=== PATIENT | female | born 1955 | race Caucasian/White ===

== ENCOUNTER → 2017-12-07 14:50 | Outpatient (CLI) | payer BC, SELFPAY ==
[2017-12-14 11:47] LABS: HPV Reflexed? NOT INDICATED
== END ==
PROVIDERS: Visit Provider Obstetrics & Gynecology
DX: Z12.4 Encounter for screening for malignant neoplasm of cervix (principal)
CPT/HCPCS: 88175; G0145

== ENCOUNTER → 2018-10-25 | Outpatient (CLI) | payer OTHER, SELFPAY ==
--- NOTE | 2018-10-25 11:19 | US_ITS ---
STUDY: ULTRASOUND OF THE FEMALE PELVIS - COMPLETE REASON FOR EXAM: Female, 63 years old. Pelvic pain. LMP: Unknown. TECHNIQUE: Transabdominal and Transvaginal TECHNICAL QUALITY: Adequate. COMPARISON: None. FINDINGS: The uterus is anteverted and is in a midline position. The uterus measures 6.6 x 4.7 x 2.8 cm. Normal uterine cervix. The endometrium measures 5 mm in thickness, and is hyperechoic. There is no demonstrated endometrial mass. There is no demonstrated myometrial mass. I.U.D. - The patient does not have an I.U.D. The right ovary is visualized. The right ovary measures 1.2 x 1.4 x 0.6 cm. There is no right ovarian cyst or ovarian mass. There is no visualized right adnexal mass or complex lesion. There is normal arterial and normal venous vascularity. Left ovary is not visualized.. Prominent vascular structures are noted within the left adnexal region. There is no fluid in the cul-de-sac. The pre void volume of the bladder was ml. The post void volume of the bladder was ml. Polycystic ovary disease: No. US/Pelvic (Non ) IMPRESSION: 1. Nonvisualized distally with left adnexal vascular structures and areas of myometrial hypoechoic regions with underlying pelvic congestion are not excluded. Further evaluation with postcontrast pelvic CT versus MRI to assess for etiology underlying vascularity may be obtained as clinically warranted. 2. Upper limits normal for age of endometrial thickness at 5 mm. Electronically Signed: Mikel Tse DO at 13:24 EDT , Service support ,
--- NOTE | 2018-10-25 11:47 | US_ITS ---
STUDY: ULTRASOUND OF THE FEMALE PELVIS - COMPLETE REASON FOR EXAM: Female, 63 years old. Pelvic pain. LMP: Unknown. TECHNIQUE: Transabdominal and Transvaginal TECHNICAL QUALITY: Adequate. COMPARISON: None. FINDINGS: The uterus is anteverted and is in a midline position. The uterus measures 6.6 x 4.7 x 2.8 cm. Normal uterine cervix. The endometrium measures 5 mm in thickness, and is hyperechoic. There is no demonstrated endometrial mass. There is no demonstrated myometrial mass. I.U.D. - The patient does not have an I.U.D. The right ovary is visualized. The right ovary measures 1.2 x 1.4 x 0.6 cm. There is no right ovarian cyst or ovarian mass. There is no visualized right adnexal mass or complex lesion. There is normal arterial and normal venous vascularity. Left ovary is not visualized.. Prominent vascular structures are noted within the left adnexal region. There is no fluid in the cul-de-sac. The pre void volume of the bladder was ml. The post void volume of the bladder was ml. Polycystic ovary disease: No. US/Transvaginal Non- IMPRESSION: 1. Nonvisualized distally with left adnexal vascular structures and areas of myometrial hypoechoic regions with underlying pelvic congestion are not excluded. Further evaluation with postcontrast pelvic CT versus MRI to assess for etiology underlying vascularity may be obtained as clinically warranted. 2. Upper limits normal for age of endometrial thickness at 5 mm. Electronically Signed: Mikel Tse DO at 13:24 EDT , Service support ,
== END | disposition home or self-care (01) ==
LOC: US 11:13
PROVIDERS: Family Provider Family Medicine; PCP Family Medicine; Referring Provider Obstetrics & Gynecology; Visit Provider Obstetrics & Gynecology
DX: R10.2 Pelvic and perineal pain (principal)
CPT/HCPCS: 76830; 76856; 93976

== ENCOUNTER → 2018-11-03 15:03 | Outpatient (CLI) | payer OTHER, SELFPAY ==
--- NOTE | 2018-11-03 | CYSPIN_PTH ---
PATIENT: DEMARCO BROTHERS LOC: [facility] U#:[id number] AGE/SX: 70/F ROOM: RE11/03/[address]: Dr. Sonya Lott MD : 1955 BED: DIS: SPEC #: [id number] RECD: 11/06/18 10:45 STATUS: EVERETTE REMaria M #: [id number] TERRY: 11/03/18 00:[address]: Sonya Lott DEPT: CYTOLOGY RECD BY: Kevin Becker ENTERED: 11/06/18 10:46 SP TYPE: CYSPIN FL OTHR DR: Dr. Mick Borden MD Tissues: Urine Procedures: Pap Stain (control) Special Stain Group II Cytospin Fluid HEADER OPERATION: Not noted PRE-OP DIAGNOSIS: R30.0 TISSUE SUBMITTED: Urine for cytology DIAGNOSIS CYTOLOGY Urine for cytology (cytospin): Negative for malignant cells. AM:sina 11/07/18 CYTOLOGY STUDY Slides are reviewed. CYTOLOGY GROSS Received is 40 ml of clear yellow fluid labeled with the patient's name and and designated per the requisition as urine. Submitted for cytology preparation. 11/06/18 TC:5 CPT: 99434
[2018-11-03 15:16] LABS: Cytology, Body Fluid / CSF SEE PATHOLOGY REPORT
== END ==
PROVIDERS: Family Provider Family Medicine; PCP Family Medicine; Referring Provider Obstetrics & Gynecology; Visit Provider Obstetrics & Gynecology
DX: R30.0 Dysuria (principal)
CPT/HCPCS: 87086; 88108; 88313

== ENCOUNTER → 2018-11-16 10:17 | Outpatient (CLI) | payer OTHER, SELFPAY ==
--- NOTE | 2018-11-16 10:30 | MRI_ITS ---
STUDY: MR PELVIS WITH T WITHOUT CONTRAST REASON FOR EXAM: Female, 63 years old. Generalized pelvic pain TECHNIQUE: Standardized fat and water weighted pulse sequences were obtained in all 3 orthogonal planes, pre-and post contrast administration. 10 IV Dotarem was administered for the contrast portion of the examination. COMPARISON: Previous ultrasound FINDINGS: Normal urinary bladder. Normal visualized small intestine. There is retained stool noted in the visualized colon, the rectum is distended with stool. This may be impacted. Uterus is visualized. Although the endometrium was not visualized on ultrasound to be of normal thickness and is shown to be abnormally thickened for age on the MRI. On MRI, it measures between 0.7 and 1.1 cm. There are also endometrial cysts best seen on the sagittal recon images sequence 3, images 17-19. If patient is postmenopausal, this is abnormal and biopsy is recommended. No suspicious adnexal mass, there has been a previous left oophorectomy There is no pelvic fluid. There is no pelvic mass lesion or lymphadenopathy. Normal visualized pelvic arteries. 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 Normal abdominal wall. MRI/Pelvis W/WO Contrast IMPRESSION: Endometrium on MRI measures between 0.7 and 1.1 cm with endometrial cysts noted. This is abnormal thickness if patient is postmenopausal and further evaluation with biopsy is recommended to exclude endometrial carcinoma. Retained stool noted in the visualized colon, there is distention of the rectum with stool which may be impacted. No suspicious cystic mass, there has been previous left oophorectomy. No demonstrated free fluid. Electronically Signed: Dano Farmer MD at 14:23 EDT , Service support ,
[2018-11-16 12:36] LABS: CREATININE FINGERSTICK 0.9 mg/dL (0.55-1.02); EGFR FINGERSTICK > 60.0000 mL/min (>60)
== END ==
PROVIDERS: Family Provider Family Medicine; PCP Family Medicine; Referring Provider Obstetrics & Gynecology; Visit Provider Obstetrics & Gynecology
DX: R10.2 Pelvic and perineal pain (principal)
CPT/HCPCS: 72197; A9575

== ENCOUNTER 2018-11-28 12:21 | Day surgery (SDC) | payer OTHER, SELFPAY ==
[2018-11-22 15:06] LABS: Hemoglobin 14.4 g/dL (12.0-15.0); Mean Corp Hgb Conc 33.5 g/dL (32-36); Mean Corpuscular Hgb 32.1 pg (27.0-32.0); Mean Platelet Vol. 9.7 fl (6.2-12.0); Platelet Count 249 K/mm3 (150-450); RBC Distribution Width CV 12.7 % (11.6-14.6); RBC Distribution Width SD 44.9 fl (35.1-43.9); Red Blood Count 4.48 M/mm3 (4.2-5.4); White Blood Count 7.5 K/mm3 (4.4-11.0)
[2018-11-22 15:12] LABS: Partial Thromboplast Time 27.9 Seconds (24.1-36.2); Prothrombin Time (Protime)PT. 12.6 SECONDS (11.7-14.9)
[2018-11-28] VITALS (7 sets, daily range): BP systolic 110–146; BP diastolic 54–68; PULSE 63–85; RESP 14–18; TEMP 36.2–36.7; O2SAT 98–100; BMI 20.5
--- NOTE | 2018-11-28 08:59 | HP.PCM_ITS ---
History Date of Admission: 11/28/18 History of this : This is a 63 year-old, G [], P [], at weeks gestational age. Allergies egg Allergy (Verified 11/22/18 14:06) Other peanut Allergy (Verified 11/22/18 14:06) Chest tightness Home Medications: Home Medications Balsam Kulwant [Kulwant Balsam] 10 drp SL BID 11/22/18 Bio Identical Hormone 0.05 mg SL DAILY 11/22/18 Bugleweed 5 ml PO DAILY 11/22/18 Collagen Powder 1 pkt PO DAILY 11/22/18 Latanoprost 0.005% [Xalatan Opthalmic] 1 drp EACH EYE QHS 11/22/18 Magnesium Oxide [Magnesium] 500 mg PO DAILY 11/22/18 [place]-3 Fatty Acids/Fish Oil [[place]-3 1,000 mg Softgel] 1 ea PO DAILY 11/22/18 Systemic Drainage Drops 10 drp SL BID 11/22/18 Thymosin Alpha 3,000 mcg PO TUTHSA 11/22/18 Thyroid,Pork [Nature-Throid] 65 mg PO DAILY 11/22/18 Vitamin B Complex 1 ea PO DAILY 11/22/18 Vitamin D3/Vitamin K2 (Mk4) [K2 Plus D3 Tablet] 1 ea PO DAILY 11/22/18 Smoking Status: Never smoker History Past Pregnancies: Past Pregnancies Delivery Date Name GA/Weeks Outcome Route Weight Infant Gender Labor Length Anesthesia Delivery Location Provider FOB Review of Systems Constitutional: Denies: Chills, Fever, Weight Change HEENT: Denies: Difficulty Hearing, Difficulty Swallowing, Nasal bleeding, Nasal Congestion, Sore Throat Cardiovascular: Denies: Chest Pain, Palpitations Respiratory: Denies: Shortness of Breath, Wheezing Gastrointestinal: Denies: Constipation, Diarrhea, Nausea, Vomiting Genitourinary: Denies: Dysuria, Frequency, Hematuria, Incontinence, Urgency Musculoskeletal: Denies: Joint Pain, Muscle pain Skin: Denies: Lesions, Skin Changes Neurological: Denies: Focal weakness, Numbness Psychiatric: Denies: Anxiety, Depression Endocrine: Denies: Heat/ Cold Intolerance Hematologic/ Lymphatic: Denies: Easy Bleeding Physical Exam General: Alert, Oriented x3, No apparent distress HEENT: Atraumatic, Normocephalic. Negative for: Thyromegaly, Lymphadenopathy Cardiovascular: Regular rate, Regular Rhythm Lungs: Clear to auscultation Abdomen: Bowel Sounds Present, Gravid Neurological: Deep Tendon Reflexes 2+/4 and Symmetrical, Neuro grossly intact AUDIO VISUAL PROJECT MANAGER: Normal external genitalia. Negative for: Vulvar lesions Assessment/Plan This is a 63 year-old, presents with pelvic pain. Noted to have thickened endometrium on ultrasound Recommend D and C, hysteroscopy The preop preparation, the intraop procedures and the postop recovery reviewed. The risks of bleeding, infection and other organ damage including bladder, bowel and uterine perforation reviewed, accepted and consented.
--- NOTE | 2018-11-28 13:20 | EMB_PTH ---
PATIENT: DEMARCO BROTHERS [place] [facility] [place][id number] AGE/SX: 63/F ROOM: RE11/28/[address]: Dr. Sonya Lott MD : 1955 BED: DIS: 11/28/2018 SPEC #: [id number] RECD: 11/29/18 07:54 STATUS: EVERETTE FRANKY #: [id number] TERRY: 11/28/18 13:[address]: Sonya Lott DEPT: SURGICAL PATHOLOGY RECD BY: Edward Briseno ENTERED: 11/29/18 11:15 SP TYPE: ENDOM BX/C FRANK DR: Dr. Mick Borden MD Tissues: Endometrium, NOS Procedures: Surgery Specimen Level IV HEADER OPERATION: Hysteroscopy, dilation and curettage PRE-OP DIAGNOSIS: Thickened endometrium, pelvic pain TISSUE SUBMITTED: Endometrial curettings MICROSCOPIC DIAGNOSIS Endometrial curettings: Polypoid fragments of endometrial tissue with focal simple cystic hyperplasia without atypia, may represent fragments of benign endometrial polyps. Fragments of inactive endometrium. Fragments of benign ectocervical epithelium. SOHEILA:sina 11/30/18 COMMENT Case has been reviewed in consultation with Dr. Pool who concurs with the above diagnosis. IDC:AM MICROSCOPIC DESCRIPTION Slides are reviewed. GROSS DESCRIPTION Received in fixative is one container labeled with the patient's name and designated endometrial curettings. The specimen consists of multiple fragments of hemorrhagic mucoid tissue that in aggregate measure 3 x 2.5 x 0.3 cm. The entire specimen is submitted in one cassette. / SOHEILA:sina 11/29/18 TC:5 CPT: 09231
--- NOTE | 2018-11-28 14:14 | PCM.OPRPT ---
Report of Operation Date of Procedure: 11/28/18 Pre-Operative Diagnosis: Thickened endometrium Post-Operative Diagnosis: Same Surgery/Procedure Performed:: D and C, hysteroscopy Description of Surgical Findings:: Uterus was sounded to approximately 9 cm in an anterior position fully mobile. Bilateral adnexa noted to be benign on pelvic exam under anesthesia Type of Anesthesia:: Local MAC Anesthesiologist: Jose Carroll Special Medications: Cefotetan 2 g IV preoperatively and 8 cc of 1% lidocaine directly to the cervix Specimen's removed: Endometrium Drains: None Estimated Blood Loss (mL): Minimal Fluids Replaced: Lactated Ringer's Description of Procedure: Patient was taken to the operating room and n.p.o. status. She is placed in the operating room table and appropriate monitors placed. She underwent a MAC anesthetic and once found be adequate she is placed in dorsolithotomy position via the Karan stirrups. Should be noted that timeout occurred upon entry to room in the second timeout before commencement of the procedure. Patient was prepped and draped in normal sterile fashion. Patient had a straight cath of the bladder for 30 cc of clear urine. Patient had weighted speculum to the vagina anterior lip of the cervix was grasped and elevated with a single-tooth tenaculum. 8 cc of 1% lidocaine placed directly to the cervix. Uterus was sounded to approximately 9 cm in the anterior position. Cervical os was easily dilated to accommodate a 5 mm hysteroscope. Hysteroscope placed into the endometrial cavity with sparse amount of tissue noted but throughout the entire endometrial cavity. There was also a polyp-like structure extending from the endocervical canal that was removed separately but was sent with the endometrial tissue. The hysteroscope was removed and followed by sharp curettage of the entire endometrial cavity. This tissue was collected and sent away for pathological evaluation. Replacement of the hysteroscope into the endometrial cavity revealed removal of all tissue. All instruments were removed from the vagina. Sponge instrument sponge and instrument counts were correct x2 patient was awakened in stable condition to be taken to the recovery room and discharged home later today. Grafts/Implants Used: None - Complications None - Admit VTE Documentation VTE Present on Admission: No VTE Mechan Device Prophylaxis: SCD's VTE Pharm Prophylaxis ordered?: No Reason prophylaxis not ordered:: Procedure Not Indicated
--- NOTE | 2018-11-28 14:17 | DCINST_ITS ---
Discharge Diet: No Restrictions, - - Increased water intake to 100 cc/day x 3 days Discharge Activity: Return to Normal Activity, May Shower, May Take a Tub Bath - in 2 weeks. Return to work on:: 11/30/18 May shower in (days): 0 - Today May resume sexual activity in: 2 weeks Weight Bearing Status: Full weight bearing Lifting Restrictions: None Additional Activity Instructions:: Ambulate often the week after surgery Call your doctor if your incision/area has: Sudden Increased Bleeding Call your doctor if you observe: Fever of 101 or Higher, Inability to urinate, Inability to have a bowel movement, Using more than one pad per hour Cleanse incision/area with: Soap & Water Allergies/Adverse Reactions: Allergies egg Allergy (Verified 11/22/18 14:06) Other peanut Allergy (Verified 11/22/18 14:06) Chest tightness Medications to take at Discharge Balsam Kulwant [Kulwant [place]] 10 drp SL BID 11/22/18 Bio Identical Hormone 0.05 mg SL DAILY 11/22/18 Bugleweed 5 ml PO DAILY 11/22/18 Collagen Powder 1 pkt PO DAILY 11/22/18 Latanoprost 0.005% [Xalatan Opthalmic] 1 drp EACH EYE QHS 11/22/18 Magnesium Oxide [Magnesium] 500 mg PO DAILY 11/22/18 [place]-3 Fatty Acids/Fish Oil [[place]-3 1,000 mg Softgel] 1 ea PO DAILY 11/22/18 Systemic Drainage Drops 10 drp SL BID 11/22/18 Thymosin Alpha 3,000 mcg PO TUTHSA 11/22/18 Thyroid,Pork [Nature-Throid] 65 mg PO DAILY 11/22/18 Vitamin B Complex 1 ea PO DAILY 11/22/18 Vitamin D3/Vitamin K2 (Mk4) [K2 Plus D3 Tablet] 1 ea PO DAILY 11/22/18 Primary Care Physician: Mick Borden MD [Primary Care Provider] - Test Results: Test results from this visit will be discussed in further detail at your follow- up appointment, if applicable. When: December 06
[2018-11-28] MEDS: Ketorolac 30 MG/ML Syringe IV (15:03)
== END 2018-11-28 16:05 | disposition home or self-care (01) ==
LOC: SDC 12:27 → AC 12:32
PROVIDERS: Family Provider Family Medicine; PCP Family Medicine; Referring Provider Obstetrics & Gynecology; Visit Provider Obstetrics & Gynecology
PROC: 0UDB8ZZ Extraction of Endometrium, Via Natural or Artificial Opening Endoscopic (ICD-10-PCS; CPT 58558; principal; 2018-11-28 13:10)
DX: N85.01 Benign endometrial hyperplasia (principal); R93.89 Abnormal findings on diagnostic imaging of other specified body structures; R10.2 Pelvic and perineal pain; Z91.010 Allergy to peanuts
CPT/HCPCS: 00952; 58558; 36415; 85027; 85610; 85730; 86850; 86900; 88305; J7120

== ENCOUNTER 2019-01-19 05:29 | Day surgery (SDC) | payer OTHER, SELFPAY ==
[2018-11-28 12:58] VITALS: BMI 20.5
--- NOTE | 2019-01-11 15:22 | EKG12_ITS ---
Test Reason : PREOP Blood Pressure : / mmHG Vent. Rate : 058 BPM Atrial Rate : 058 BPM P-R Int : 142 ms QRS Dur : 084 ms QT Int : 440 ms P-R-T Axes : 050 070 036 degrees QTc Int : 431 ms Sinus bradycardia Otherwise normal ECG No previous ECGs available Confirmed by VENKAT BAILON ([id number]), image editor KOFFI PIEDRA ([id number]) on 01/15/2019 3:09:46 PM Referred By: Luis Carlos Mancilla Confirmed By:VENKAT BAILON
[2019-01-11 15:51] LABS: Hematocrit 40.1 % (37-47); Hemoglobin 13.3 g/dL (12.0-15.0); Mean Corp Hgb Conc 33.2 g/dL (32-36); Mean Corpuscular Hgb 31.5 pg (27.0-32.0); Mean Platelet Vol. 9.6 fl (6.2-12.0); Platelet Count 266 K/mm3 (150-450); RBC Distribution Width CV 12.9 % (11.6-14.6); Red Blood Count 4.22 M/mm3 (4.2-5.4); White Blood Count 7.3 K/mm3 (4.4-11.0)
[2019-01-11 16:20] LABS: International Normalized Ratio 1.1; Partial Thromboplast Time 28.9 Seconds (24.1-36.2); Prothrombin Time (Protime)PT. 13.6 SECONDS (11.7-14.9)
[2019-01-11 16:30] LABS: ALB/GLOB Ratio 1.2 RATIO (0.9-2.4); AST(SGOT) 16 U/L (15-37); Alanine Aminotransfer ALT/SGPT 21 U/L (13-56); Albumin, Serum 3.8 g/dL (3.2-5.0); Alkaline Phosphatase 83 U/L (45-117); Anion Gap 6 (5-15); BUN 15 mg/dL (7-18); BUN/Creat Ratio 19.5 RATIO (10-20); Calcium,Total 8.9 mg/dL (8.5-10.1); Chloride 107 mmol/L (98-107); Creatinine, Serum 0.77 mg/dL (0.55-1.02); EST Glomerular Filtration Rate 80 mL/min (>60); Est Glom Filt Rate - Afr Amer 97 mL/min (>60); Globulin 3.3 g/dL (2.2-4.2); Glucose 69 mg/dL (74-106); Potassium 4.1 mmol/L (3.5-5.1); Protein, Total 7.1 g/dL (6.4-8.2); Sodium Level 142 mmol/L (136-145); Thyroid Stim Hormone (TSH) 0.45 uIU/mL (0.358-3.74)
--- NOTE | 2019-01-18 21:23 | PCM.HP.BLA ---
History and Physical Date of Admission: 01/19/19 Surgical History and Physical Germaine Siu, a 63 year old female 2 0 0 0 2, presents for RAVH/BSO on January 19, 2019 at 7:30. -- [employer]IVER Bleeding, Cystic Hyperplasia -- Cystic hyperplasia which began months ago. It occurs all the time. 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 MEDICATIONS HISTORY: Patient is also takin. latanoprost (PF) 0.005 % eye drops, daily 2. Nature-Throid 65 mg tablet, One pill by mouth once a day ALLERGIES: Peanut, Stomach ache, Egg and Stomach ache Infections - Chicken pox and HX. OF UTI'S Illnesses - allergies Accidents - None Hospitalizations - Childbirth and see surgery Review of Systems: GENERAL - Denies fever, or chills SKIN - Denies skin changes EYES - Denies visual changes EARS - Denies difficulty hearing NOSE - Denies nasal congestion or bleeding MOUTH - Denies sore throat or difficulty swallowing NECK - Denies pain or swelling RESPIRATORY - Denies shortness of breath or wheezing CARDIOVASCULAR - Denies palpitations or chest pain GASTROINTESTINAL - Denies nausea, vomiting, diarrhea, constipation GENITOURINARY - Denies dysuria, frequency of urination, incontinence of urine MUSCULOSKELETAL - Denies joint or muscle pain NEUROLOGICAL - Denies localized numbness or weakness PSYCHIATRIC - Denies depression or anxiety ENDOCRINE - Denies heat or cold intolerance, weight loss or gain HEMATO-IMMUNOLOGIC - Denies excesive bleeding with cuts SOCIAL HISTORY: Alcohol Use - drinks occasionally Smoking - denies smoking Diet - balanced Diet Lifestyle - Exercise - regular Seat Belt Use - most of the time Employer - [employer] 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 Left Ovary removal 2011 2. tonsillectomy 3. Breast implants 1984 4. 11/28/2018 hysteroscopy, D and C ; Sonya Lott MD PHYSICAL EXAM BP- 130/72 Sitting, Right arm, regular cuff Weight- 121.69022 lbs Height- 64 inch BMI:20.81 CONSTITUTIONAL - NAD, well nourished, and well developed SKIN - No rash, lesions, or ulcers HEENT - Normocephalic, PERRLA, EOMI NECK - No nodes, no nuchal rigidity and thyroid normal size and texture LYMPH NODES - Palpation of lymph nodes in neck and groins within normal limits LUNGS - CTA x2 without wheezes, crackles or rales CARDIAC - Regular rate and rhythm without rubs, murmurs, or gallops BREAST - No dominant masses, no tenderness, no axillary adenopathy, no nipple discharge, no skin changes ABDOMEN - Without hepatosplenomegaly, distention, masses, rebound, or guarding; normal bowel sounds; no hernias EXTREMITIES - No edema or calf tenderness NEUROLOGICAL - Cranial nerves II-XII grossly intact PSYCHIATRIC - A and O to time, place, person, mood and affect External Genitial Vagina - improved hydration Urethra/Urethral Meatus - non-tender Bladder - non-tender Vagina - improved hydration Cervix - without cervical motion tenderness and has normal size and features without evident lesions and cervix high in vagina which would make LAVH technically difficult Uterus - multiparous size 6 cm & wt 75-125 g Adnexa - clear without massess or tenderness ASSESSMENT/PLAN: 1. Simple Endometrial Hyperplasia Without Atypia Discussed options for treatment including chronic progesterone use vs proceeding with surgery. Pt desires proceeding with RAVH/BSO. Discussed RBAs and all questions anssered.
[2019-01-19] VITALS (17 sets, daily range): BP systolic 86–124; BP diastolic 37–55; PULSE 49–73; RESP 14–18; TEMP 36.3–37.1; O2SAT 95–100; BMI 20.3
[2019-01-19] MEDS: Lactated Ringers 1,000 ML 100 ML IV ×3 (06:24→06:30)
--- NOTE | 2019-01-19 07:30 | HYST_PTH ---
PATIENT: DEMARCO BROTHERS [place] [facility] [place][id number] AGE/SX: 63/F ROOM: RE01/19/[address]: Dr. Luis Carlos Mancilla MD : 1955 BED: DIS: 01/20/2019 SPEC #: [id number] RECD: 01/19/19 12:31 STATUS: EVERETTE FRANKY #: [id number] TERRY: 01/19/19 07:[address]: Luis Carlos Mancilla DEPT: SURGICAL PATHOLOGY RECD BY: Kevin Becker ENTERED: 01/19/19 12:32 SP TYPE: HYSTERECT OTHR DR: Dr. Mick Borden MD Tissues: Uterus, NOS Procedures: Surgery Specimen Level V HEADER OPERATION: Robotic-assisted vaginal hysterectomy, right salpingo-oophorectomy PRE-OP DIAGNOSIS: Postmenopausal bleeding and cystic endometrial hyperplasia TISSUE SUBMITTED: Uterus, cervix, right fallopian tube and ovary MICROSCOPIC DIAGNOSIS Uterus, cervix, right fallopian tube and ovary, vaginal hysterectomy and right salpingo-oophorectomy: Cervix - mild chronic cystic cervicitis. Endometrium - simple cystic endometrial hyperplasia without atypia. Myometrium - focal adenomyosis. Right fallopian tube - no pathologic diagnosis. Right ovary - no pathologic diagnosis. SJ:rg 01/22/19 COMMENT Please make reference to previous specimen ([id number]) endometrial curettings with diagnosis of polypoid fragments of endometrial tissue with focal simple cystic hyperplasia without atypia. MICROSCOPIC DESCRIPTION Slides are reviewed. GROSS DESCRIPTION Received in fixative is one container labeled with the patient's name and designated uterus. The specimen consists of a uterus with attached right fallopian tube and ovary and attached cervix. The uterus with cervix measures 7 x 4 x 2.8 cm and weighs 38.7 gm. The ectocervix is slit-like in appearance and the ectocervix is free of mass lesions. The endocervical canal measures 3.3 cm in length and is grossly unremarkable. The triangular endometrial cavity measures 2.5 x 2 cm. The reddish-roche endometrium measures up to 0.2 cm in thickness. The ovary is roche-white and has a crinkled appearance and measures 3 x 1.2 x 0.3 cm. Sections do not reveal mass lesions. The adjacent fallopian tube measures 7.5 cm in length and 0.7 cm in average diameter. No tubo-ovarian adhesions are identified. Burn Out Scarfing Operator sections are submitted in seven cassettes as follows: 1 - anterior cervix, 2 - posterior cervix, 3 & 4 - complete anterior endometrium with adjacent myometrium, 5 & 6 - complete posterior endometrium with adjacent myometrium, 7 - fallopian tube and ovary. / AM:sina 01/19/19 TC:5 CPT: 25861
--- NOTE | 2019-01-19 07:42 | OP.PCM_ITS ---
Report of Operation Date of Procedure: 01/19/19 Pre-Operative Diagnosis: Postmenopausal Bleeding and Cystic Endometrial Hy perplasia Post-Operative Diagnosis: Postmenopausal Bleeding and Cystic Endometrial Hyperplasia Surgery/Procedure Performed:: Robotic Assisted Vaginal Hysterectomy and Right Salpingo-Oophorectomy Description of Surgical Findings:: 7 cm uterus with normal-appearing right fallopian tube and ovary. Evidence of prior left salpingo-oophorectomy. facilities technician: Fish Turner Type of Anesthesia:: General - Endotracheal Anesthesiologist: Earle Parker Drains: Madrid to straight drain Estimated Blood Loss (mL): Minimal Fluids Replaced: Crystalloid Description of Procedure: Surgeon: Luis Carlos Mancilla MD, FACOG Indication: This is a 63 year old patient who has been having problems with postmenopausal bleeding and D&C showed cystic endometrial hyperplasia. The patient declines ongoing progesterone therapy and desires we proceed with the above surgery. The patient has been counseled regarding the risks, benefits and alternatives of this procedure including the possibility of bleeding, infection, and injury to surrounding structures such as bowel bladder and all questions were answered. Procedure: Pt taken to the operating room where, after induction of general anesthesia, the patient was prepped and draped in the usual sterile fashion and placed on a non-slip Huggy-u-vac device. Trendelenburg test was satisfactory. Bladder was drained of urine with a Madrid catheter which was left in place. Anterior cervix grasped and cervix was dilated to about 3-4 mm. Uterus sounded to 6-7 cms. 0-Vicryl suture was placed at the 3:00 and 9:00 position of the cervix. A medium Advincula Hemstitching Machine Operator Uterine Manipulator was then placed in the uterus and attention was turned to the laparoscopic portion of the procedure. Ropivocaine 0.5% was injected approximately 1-2 cm superior to the umbilicus and an 8 mm robotic camera port was introduced directly with intraperitoneal placement confirmed with CO2 insufflation. 8 mm robotic side ports were introduced under direct visualization approximately 10 cm lateral and 2 cm inferior to the umbilical port. A 5 mm left upper quadrant port was introduced and airseal insufflation with CO2 was started. The above findings were noted. Robot was docked without difficulty and attention turned to the robotic portion of the procedure. Approximately 30 cc of Ropivicaine was used. Right infundibulopelvic ligaments and mesosalpinx was ligated with 35 denise bipolar coagulation to the level of the round ligament. The posterior aspect of the cervix was identified and then opened for about 1 cm using 25 watt monopolar cautery identifying the uterine manipulating device which had been placed vaginally. Bladder flap was opened and divided to the level of the round ligaments using monopolar cautery. Some adhesions were encountered on the anterior bladder flap. Progressive bites were then ligated on each side of the cervix with 35 denise bipolar cautery to the uterine arteries. The anterior vaginal mucosa was entered and cervix circumscribed with monopolar cautery. Uterus and attached right tube and ovary were removed through the vagina. Vaginal cuff was closed first with 0-Vicryl David stitches placed at each angle followed by closure of the mid-cuff with 0-Monocryl V-lock suture in two layers. Pelvis was copiously irrigated with saline and the right and left ureter were noted to peristalse. Robot was undocked and trocars were removed with as much gas as possible. Incisions were closed with 4-0 Monocryl subcuticular sutures and incisions covered with steri-strips. The patient tolerated the procedure well and was taken to the recovery room in satisfactory condition. Sponge, instruments and needle counts were all correct. There were no apparent complications of the surgery. Cefotan 2 gms IV was given prior to the procedure. Estimated Blood Loss: Minimal Specimen to Pathology: Uterus and right fallopian tube and ovary Grafts/Implants Used: None - Complications None - Admit VTE Documentation VTE Present on Admission: Yes VTE Mechan Device Prophylaxis: SCD's VTE Pharm Prophylaxis ordered?: Yes
--- NOTE | 2019-01-19 07:46 | DCINST_ITS ---
Discharge Diet: No Restrictions Discharge Activity: Return to Normal Activity, May Not Drive - while taking narcotic pain medications., May Shower, May Take a Tub Bath May resume sexual activity in: 6-8 weeks Call your doctor if your incision/area has: Continuous Slow Oozing, Sudden Inc reased Bleeding, Increased Pain/ Swelling, Increased Redness, Foul Smelling Discharge Call your doctor if you observe: Fever of 101 or Higher, Inability to urinate, Inability to have a bowel movement, Using more than one pad per hour Allergies/Adverse Reactions: Allergies egg Allergy (Verified 01/10/19 10:52) Other peanut Allergy (Verified 01/10/19 10:52) Chest tightness Medications to take at Discharge Balsam Kulwant [Kulwant Balsam] 10 drp SL BID 11/22/18 Bio Identical Hormone 0.05 mg SL DAILY 11/22/18 Bugleweed 5 ml PO DAILY 11/22/18 Collagen Powder 1 pkt PO DAILY 11/22/18 Latanoprost 0.005% [Xalatan Opthalmic] 1 drp EACH EYE QHS 11/22/18 Magnesium Oxide [Magnesium] 500 mg PO DAILY 11/22/18 Morton-3 Fatty Acids/Fish Oil [Morton-3 1,000 mg Softgel] 1 ea PO DAILY 11/22/18 Systemic Drainage Drops 10 drp SL BID 11/22/18 Thymosin Alpha 3,000 mcg PO TUTHSA 11/22/18 Thyroid,Pork [Nature-Throid] 65 mg PO DAILY 11/22/18 Vitamin B Complex 1 ea PO DAILY 11/22/18 Vitamin D3/Vitamin K2 (Mk4) [K2 Plus D3 Tablet] 1 ea PO DAILY 11/22/18 Docusate Sodium [Colace] 100 mg PO BID PRN PRN #60 cap 01/19/19 Oxycodone [Oxyir] 5 mg PO Q6H PRN PRN 7 Days #10 tab 01/19/19 The following prescriptions were given: Docusate Sodium [Colace] 100 mg PO BID PRN PRN #60 cap PRN Reason: Constipation Prescription Printed Oxycodone [Oxyir] 5 mg PO Q6H PRN PRN 7 Days #10 tab PRN Reason: Severe Pain (-02/15) Prescription Printed Orders to be completed after discharge: Thyroid Stim Hormone (TSH) Time Frame: 01/10/19, Facility: [facility], Location: Laboratory Primary Care Physician: Mick Borden MD [Primary Care Provider] - Test Results: Test results from this visit will be discussed in further detail at your follow- up appointment, if applicable. Please Follow Up With: Luis Carlos Mancilla MD When: 2 to 3 weeks
[2019-01-19] MEDS: Ropivacaine 0.5% 30 ML Vial (08:15)
[2019-01-19] MEDS: Lactated Ringers 500 ML 999 ML IV (11:26)
[2019-01-19] MEDS: Ketorolac 30 MG/ML Syringe IV ×2 (12:54→18:13)
[2019-01-19] MEDS: 0.9% NaCl Peripheral Flush Adult/Peds IV (12:54)
[2019-01-19] MEDS: Dextrose 5%-Lactated Ringers 1,000 ML 125 ML IV ×2 (12:55→21:32)
[2019-01-19] MEDS: Glycerin/Hypromellose/PEG400 15 ml Bottle EACH EYE ×2 (15:15→16:22)
[2019-01-19] MEDS: Enoxaparin 30 MG/0.3 ML Syringe SC (18:13)
[2019-01-19] MEDS: Acetaminophen 500 MG Tablet 1000 MG PO (20:21)
[2019-01-19] MEDS: Ondansetron 4 MG/2 ML Vial IV (20:22)
[2019-01-20] MEDS: Ketorolac 30 MG/ML Syringe IV (00:27)
[2019-01-20 01:31] VITALS: BP 120/41; PULSE 62; RESP 16; TEMP 37; O2SAT 96
[2019-01-20] MEDS: Ketorolac 10 MG Tablet PO ×2 (04:45→09:58)
[2019-01-20] MEDS: 0.9% NaCl Peripheral Flush Adult/Peds IV ×2 (05:40→09:50)
[2019-01-20] MEDS: Acetaminophen 500 MG Tablet 1000 MG PO (05:47)
[2019-01-20 08:07] LABS: Hematocrit 36.3 % (37-47); Hemoglobin 12.3 g/dL (12.0-15.0); Mean Corp Hgb Conc 33.9 g/dL (32-36); Mean Corpuscular Hgb 31.9 pg (27.0-32.0); Mean Platelet Vol. 9.9 fl (6.2-12.0); Platelet Count 221 K/mm3 (150-450); RBC Distribution Width CV 12.5 % (11.6-14.6); RBC Distribution Width SD 43.5 fl (35.1-43.9); Red Blood Count 3.86 M/mm3 (4.2-5.4); White Blood Count 10.5 K/mm3 (4.4-11.0)
[2019-01-20 08:22] LABS: Creatinine, Serum 0.91 mg/dL (0.55-1.02); EST Glomerular Filtration Rate 66 mL/min (>60); Est Glom Filt Rate - Afr Amer 80 mL/min (>60); Estimated Creatinine Clearance 53.74 ml/min
--- NOTE | 2019-01-20 09:16 | PCM.PN.OB ---
Subjective: Patient without complaints. Tolerating diet well. Positive flatus. Minimal vaginal bleeding. Voiding on own. Ready to go home. - Physical Exam Vital Signs Temp Pulse Resp BP Pulse Ox 98.6 F 62 16 120/41 L 96 01/20/19 01:31 01/20/19 01:31 01/20/19 01:31 01/20/19 01:31 01/20/19 01:31 Oxygen Delivery Method Room Air Weight: 118 lb 9.739 oz Body Mass Index (BMI) 20.3 Intake and Output for Last 24 Hours 01/18/19 01/19/19 01/20/19 23:59 23:59 23:59 Intake Total 4346.67 / 4346.67 1400 / 1400 Output Total 925 / 925 600 / 600 Balance 3421.67 / 3421.67 800 / 800 Laboratory Tests Past 24 Hrs 01/20/19 01/20/19 07:10 07:10 WBC 10.5 RBC 3.86 L Hgb 12.3 Hct 36.3 L MCV 94.0 MCH 31.9 MCHC 33.9 RDW Std Deviation 43.5 RDW Coeff of Sujata 12.5 Plt Count 221 MPV 9.9 Creatinine 0.91 Estim Creat Clear Calc 53.74 Est GFR (MDRD) Af Amer 80 Est GFR (MDRD) Non-Af 66 Wounds are clean, dry, intact. Good urine output. Hemoglobin and creatinine okay. Minimal to no vaginal bleeding Medical Necessity - Tobacco Use Smoking Status: Never smoker Tobacco Use: Non-smoker Assessment/Plan Doing well postoperative day #1 status post robotic assisted vaginal hysterectomy and right salpingo-oophorectomy. Will release to home with routine instructions.
[2019-01-20 09:28] VITALS: BP 115/44; PULSE 69; RESP 16; TEMP 37.3; O2SAT 97
[2019-01-20] MEDS: Ondansetron 4 MG/2 ML Vial IV (09:50)
== END 2019-01-20 10:31 | disposition home or self-care (01) ==
LOC: SDC 05:31 → AC 05:32 → MS3 08:53 → AC 09:15 → MS3 10:14
PROVIDERS: Family Provider Family Medicine; PCP Family Medicine; Referring Provider Obstetrics & Gynecology; Visit Provider Obstetrics & Gynecology
PROC: 0UT94ZZ Resection of Uterus, Percutaneous Endoscopic Approach (ICD-10-PCS; CPT 58552; principal; 2019-01-19 07:10)
DX: N95.0 Postmenopausal bleeding (principal); N85.01 Benign endometrial hyperplasia
CPT/HCPCS: 58552; 36415; 80053; 82565; 84443; 85027; 85610; 85730; 86850; 86900; 86901; 88307; 93005; J7120; A4216; J2405

== ENCOUNTER → 2020-03-21 12:42 | Outpatient (CLI) | payer OTHER, SELFPAY ==
[2019-01-19 12:51] VITALS: BMI 20.3
[2020-03-27 21:56] LABS: HPV Reflexed? NOT INDICATED
== END ==
PROVIDERS: PCP Family Medicine; Visit Provider Student in an Organized Health Care Education/Training Program
DX: Z12.4 Encounter for screening for malignant neoplasm of cervix (principal)
CPT/HCPCS: 88175; G0145

== ENCOUNTER → 2021-09-23 | Outpatient (CLI) | payer OTHER, SELFPAY ==
--- NOTE | 2021-09-23 09:33 | BD_ITS ---
STUDY: DUAL ENERGY X-RAY ABSORPTIOMETRY / DXA REASON FOR EXAM: Female, 66 years old. M85.89. Patient is postmenopausal. TECHNIQUE: Bone Mineral Density (BMD) measurements of lumbar spine and bilateral hips were obtained. COMPARISON: None. FINDINGS: Lumbar Spine (L1-L4): g/cm2 (0.899) / T-score (-1.3) / Z-score (0.5) Findings are suggestive of osteopenia with a low fracture risk. Left Femur Total: g/cm2 (0.843) / T-score (-0.8) / Z-score (0.5) Left Femoral Neck: g/cm2 (0.748) / T-score (-0.9) / Z-score (0.7) Right Femur Total: g/cm2 (0.849) / T-score (-0.8) / Z-score (0.5) Right Femoral Neck: g/cm2 (0.729) / T-score (-1.1) / Z-score (0.5) BD/Dexa Bone Density Study IMPRESSION: The patient is considered osteopenic as outlined below according to World [employer] Organization (WHO) criteria with a low fracture risk. Reference Information: The T-score is the number of standard deviations above or below the standard which is normal for young adults at their peak bone mineral density. The World Health Organization (WHO) interprets the T-scores as follows: Above -1 Normal bone density Between -1 and -2.5 Osteopenia Equal to / or below -2.5 Osteoporosis As a practical clinical guideline, osteopenia may be graded as follows: Mild -1 through -1.5 Moderate -1.6 through -2.0 Severe -2.1 through -2.4 The Z-score is the number of standard deviations above or below age-matched controls. A Z-score of less than -1.5 would be considered abnormal. References: 1. NIH Osteoporosis and Related Bone Diseases www osteo.org 2. International Society for Clinical Densitometry www iscd.org 3. National Osteoporosis Foundation www nof.org Electronically Signed: Ventura Piedra MD at 15:33 EDT ,
== END | disposition home or self-care (01) ==
LOC: OPBD 09:22
PROVIDERS: PCP Family Medicine; Visit Provider Student in an Organized Health Care Education/Training Program
DX: M85.9 Disorder of bone density and structure, unspecified (principal)
CPT/HCPCS: 77080